=== PATIENT | male | born 1995 | race Caucasian/White ===

== ENCOUNTER 2018-02-27 09:38 | Emergency (ER) | payer OTHER ==
[~2018-02-27] VITALS: Wt 47.4 kg
[2018-02-27 09:40] VITALS: BP 126/60; PULSE 100; RESP 20
--- NOTE | 2018-02-27 10:16 | ERD ---
ER Documentation Chief Complaint Chief Complaint FLU X 3 DAYS, COUGH,RUNNY NOSE, VOMITING,FEVER HPI 22-year-old male, previously healthy, presents the emergency department, complaining of 1 week with upper respiratory symptoms including cough, runny nose and chest congestion during the last 3 days has became worse, associated with subjective fever, wheezing, nausea and vomiting. The patient has been taking [id number] medication without improvement of the symptoms. He denies shortness of breath, no chest pain. ROS All systems reviewed and are negative except as per history of present illness. Medications Home Meds Active Scripts Acetaminophen* (Tylenol*) 325 Mg Tablet, 2 TAB PO Q8 PRN for PAIN AND OR ELEVATED TEMP, #20 TAB Prov:SHASHI DRISCOLL MD 02/27/18 Inhaler, Assist Devices (Compact Space Chamber) 1 Each Spacer, EACH MC Q4H WHILE AWAKE PRN for COUGH, #1 Prov:SHASHI DRISCOLL MD 02/27/18 Albuterol Sulfate* (Proair HFA*) 8.5 Gm Hfa.aer.ad, 2 PUFF INH Q4H PRN for WHEEZING AND SOB, #1 INHALER Prov:SHASHI DRISCOLL MD 02/27/18 Promethazine Hcl* (Promethazine Hcl* Syrup) 6.25 Mg/5 Ml Syrup, 6.25 MG PO QHS PRN for COUGH, #60 ML Prov:SHASHI DRISCOLL MD 02/27/18 Allergies Allergies: Coded Allergies: No Known Drug Allergies (Verified Allergy, Unknown, 02/27/18) PMhx/Soc Medical and Surgical Hx: pt denies Medical Hx, pt denies Surgical Hx Hx Alcohol Use: No Hx Substance Use: No Hx Tobacco Use: No Smoking Status: Never smoker FmHx Family History: No diabetes, No coronary disease Physical Exam Vitals Vital Signs Date Temp Pulse Resp B/P (MAP) Pulse Ox O2 O2 Flow FiO2 Time Delivery Rate 02/27/18 99.2 100 20 126/60 96 09:40 (82) Physical Exam Const: No acute distress Head: Atraumatic Eyes: Normal Conjunctiva ENT: Normal External Ears, Nose and Mouth. Neck: Full range of motion. No meningismus. Resp: Bilateral rhonchi with scattered wheezing to auscultation bilaterally Cardio: Regular rate and rhythm, no murmurs Abd: Soft, non tender, non distended. Normal bowel sounds Skin: No petechiae or rashes Back: No midline or flank tenderness Ext: No cyanosis, or edema Neur: Awake and alert Psych: Normal Mood and Affect Procedures/MDM Differential diagnosis include but not limited to: Respiratory infection bacterial/viral/fungal. Asthma, pneumonitis, allergies, GERD. Less likely foreign body aspiration, cardiac related, aspiration pneumonia, malignancy. Physical examination and clinical presentation consistent most likely with viral syndrome. During the ED course the patient remained stable, no new complaints. Clinical impression discussed with the patient who agrees with management. The patient is stable to be treated outpatient and will be discharged home. antibiotics not indicated at this time. some side effects of prescribed medications (headache, rash, nausea, vomiting, diarrhea, drowsiness, hypertension, interactions with other medications) were reviewed. The patient was instructed to follow up with the primary care provider in the next 48h. If symptoms persist, worsen or new symptoms develop, then patient should return to the ED immediately. Disclaimer: Inadvertent spelling and grammatical errors are likely due to EHR/dictation software use and do not reflect on the overall quality of patient care. Also, please note that the electronic time recorded on this note does not necessarily reflect the actual time of the patient encounter. Departure Diagnosis: Primary Impression: Upper respiratory infection Condition: Stable Patient Instructions: Preventing Common Respiratory Infections Additional Instructions: Thank you very much for allowing us to participate in your care. Your health and safety is our top priority at [facility]. Call your primary care doctor TOMORROW for an appointment during the next 2-4 days and bring all the information and medications prescribed. Have prescriptions filled and follow precisely the directions on the label. If the symptoms get worse and your provider is unavailable, return to the Emergency Department immediately. SHASHI DRISCOLL MD Feb 27, 2018 10:16
[2018-02-27] MEDS ORDERED: ALBU8.5H8 INH (10:18)
[2018-02-27] MEDS ORDERED: INHA-3 MC (10:18)
[2018-02-27] MEDS ORDERED: PROM6.2515 PO (10:18)
[2018-02-27] MEDS ORDERED: ACET325T33 PO (10:18)
== END 2018-02-27 10:44 | disposition home or self-care (01) ==
LOC: FTE 09:38
DX: J06.9 Acute upper respiratory infection, unspecified (principal)
CPT/HCPCS: 99283